=== PATIENT | male | born 1960 | race Caucasian/White ===

== ENCOUNTER 2019-03-29 01:01 | Emergency (ER) | payer MEDICAID ==
[~2019-03-29] VITALS: Ht 185.4 cm; Wt 99.8 kg
--- NOTE | 2019-03-29 01:13 | NUR ---
ED Nurse Note: Walk-in aptient with complaints of nosebleed x 3 in the past 2 hours.
[2019-03-29 01:14] VITALS: BP 123/84
--- NOTE | 2019-03-29 02:41 | Emergency Room Report ---
History of Present Illness General Chief Complaint: Nosebleed Source: Patient Present Illness HPI This is a 59-year-old male with history of high blood pressure. He presents with complaint of nosebleed. Onset for the last 12 hours. No nausea no vomiting. Most of the bleeding is on the right side. He tried ice to the back of his head and later on ice to 1 of his neck and it did not help the bleeding. He decided come in. No nausea no vomiting. Denies any trauma. No shortness of breath. Not on aspirin or anticoagulant. Denies any nose picking. Bleeding is stopped now. Allergies: Coded Allergies: No Known Allergies (Unverified , 03/29/19) Patient History Past Medical History: see triage record, old chart reviewed, HTN Past Surgical History: other Pertinent Family History: none Social History: Denies: smoking Immunizations: other Reviewed Nursing Documentation: PMH: Agreed; PSxH: Agreed Nursing Documentation-PMH Past Medical History: No History, Except For Hx Hypertension: Yes Hx Diabetes: Yes Review of Systems Eye: Denies: eye pain, blurred vision ENT: Denies: ear pain, nose congestion, throat swelling Respiratory: Denies: cough, shortness of breath Cardiovascular: Denies: chest pain, palpitations Gastrointestinal: Denies: abdominal pain, diarrhea, nausea, vomiting Musculoskeletal: Denies: back pain, joint pain Skin: Denies: rash Neurological: Denies: headache, numbness Endocrine: Denies: increased thirst, increased urine Hematologic/Lymphatic: Denies: easy bruising All Other Systems: negative except mentioned in HPI Physical Exam Vital Signs Date Time Temp Pulse Resp B/P (MAP) Pulse Ox O2 Delivery O2 Flow Rate FiO2 03/29/19 01:08 97.3 85 18 123/84 (97) 96 Room Air Vitals normal Sp02 EP Interpretation: reviewed, normal General Appearance: well appearing, no apparent distress, alert Head: normocephalic, atraumatic Eyes: bilateral eye PERRL, bilateral eye EOMI ENT: hearing grossly normal, normal pharynx, other - Right nares: There is evidence of bleeding from the septum with several area of scabbing. No active bleeding. Neck: full range of motion, supple, no meningismus Respiratory: chest non-tender, lungs clear, normal breath sounds Cardiovascular #1: regular rate, rhythm, no murmur Gastrointestinal: normal bowel sounds, non tender, no mass, no organomegaly, no bruit, non-distended Musculoskeletal: back normal, normal range of motion, gait/station normal Psychiatric: mood/affect normal Procedures Additional Procedure Procedure Narrative Procedure: Epistaxis control Indication: Epistaxis Description: I placed a 4.5 cm Rhino Rocket. I inflated the balloon. Patient tolerated surgery without any problem. No active bleeding. Medical Decision Making Diagnostic Impression: Primary Impression: Epistaxis ER Course Patient with epistaxis. No evidence of any posterior bleeding. No evidence of any mass. Patient is not taking aspirin. Bleeding controlled now. Will discharge home. Last Vital Signs Date Time Temp Pulse Resp B/P (MAP) Pulse Ox O2 Delivery O2 Flow Rate FiO2 03/29/19 01:14 97.3 82 18 123/84 96 Room Air Status: improved Disposition: HOME, SELF-CARE Condition: Stable Referrals: NOT CHOSEN IPA/,REFERRING (PCP) Patient Instructions: Nosebleed, [id number] Additional Instructions: Apply antibiotic ointment to left nares twice a day. Follow-up with your doctor in 7 days. Keep packing in for 2 days. You can either come back here or see your doctor to have it removed. Return if worse. Jay Rapp MD Mar 29, 2019 02:41
--- NOTE | 2019-03-29 02:46 | NUR ---
ED Nurse Note: Patient cleared for discharge by SONIYA. Patient tolerated procedure well . Patient has no complaints at this time. Patient is A&Ox4, ambulatory with steady gait. Patient departed with all belongings accompanied by significant other to car.
[2019-03-29 02:48] VITALS: BP 123/84
== END 2019-03-29 02:48 | disposition home or self-care (01) ==
LOC: EMR 01:55
DX: R04.0 Epistaxis (principal); E11.9 Type 2 diabetes mellitus without complications; I10 Essential (primary) hypertension
CPT/HCPCS: 30901; Z7502; 99283